=== PATIENT | female | born 1935 | race Caucasian/White ===

== ENCOUNTER → 2020-04-26 | Outpatient (CLI) | payer MEDICARE ==
[~2020-04-26] VITALS: Ht 160 cm; Wt 63.5 kg
[~2020-04-26] MED LIST: ASPIR-LOW81 MG PO; BENICAR20 MG PO; CITRACAL + D M1 EACH PO; CRESTOR5 MG PO; CYANOCOBAL1000 MCG/1 INJ; KLOR-CON 1010 MEQ PO; LASIX20 MG PO; LOPRESSOR 50 MG50 MG PO; MAGNESIUM200 MG PO; NEXIUM40 MG PO; NORVASC5 MG PO; SYNTHROID100 MCG PO; VALIUM2 MG PO; VITAMIN B-121000 MC3 PO; VITAMIN C500 M4 PO
== END ==
LOC: OPSV 04-12 11:00
DX: M81.0 Age-related osteoporosis without current pathological fracture (principal); M84.48XA Pathological fracture, other site, initial encounter for fracture
CPT/HCPCS: 96365; J3489

== ENCOUNTER 2021-01-30 11:42 | Emergency (ER) | payer MEDICARE ==
[2021-01-30 12:26] LABS: HEMOGLOBIN 13.8 gm/dl (12.3-15.3); RED BLOOD COUNT 4.6 M/UL (4.00-5.10); WHITE BLOOD COUNT 7.2 K/UL (4.5-11.0)
[2021-01-30 12:57] LABS: BUN/CREATININE RATIO 15 (0-10)
[2021-01-30] MEDS ORDERED: CYCLOBENZAPRINE5 MG PO (15:54)
== END 2021-01-30 16:14 | disposition home or self-care (01) ==
LOC: ER1 11:42
PROVIDERS: Emergency Medicine
DX: S46.912A Strain of unspecified muscle, fascia and tendon at shoulder and upper arm level, left arm, initial encounter (principal); M54.6 Pain in thoracic spine; I48.20 Chronic atrial fibrillation, unspecified; R91.1 Solitary pulmonary nodule; I10 Essential (primary) hypertension; I25.10 Atherosclerotic heart disease of native coronary artery without angina pectoris; Z79.01 Long term (current) use of anticoagulants; Z88.0 Allergy status to penicillin; Z95.5 Presence of coronary angioplasty implant and graft; X58.XXXA Exposure to other specified factors, initial encounter
CPT/HCPCS: 71045; 72128; 73030; 80053; 81001; 82550; 82553; 83690; 83874; 84484; 85025; 85610; 93005; 99284

== ENCOUNTER → 2021-05-22 | Outpatient (CLI) | payer MEDICARE ==
[~2021-05-22] MED LIST changes: +CYCLOBENZAPRINE5 MG PO
== END ==
LOC: KOH-I 13:39
DX: M25.571 Pain in right ankle and joints of right foot (principal)
CPT/HCPCS: 73610

== ENCOUNTER → 2021-10-13 | Outpatient (CLI) | payer MEDICARE | LOC: CT 08:57 | DX: R10.84 Generalized abdominal pain (principal); R74.8 Abnormal levels of other serum enzymes | CPT/HCPCS: 36415; 82565; 84520; Q9967 ==

== ENCOUNTER 2021-11-29 09:01 | Emergency (ER) | payer MEDICARE ==
[2021-11-29 10:17] LABS: HEMOGLOBIN 14.5 gm/dl (12.3-15.3); RED BLOOD COUNT 4.73 M/UL (4.00-5.10); WHITE BLOOD COUNT 6.4 K/UL (4.5-11.0)
[2021-11-29 10:47] LABS: BUN/CREATININE RATIO 13 (0-10)
[2021-11-29] MEDS ORDERED: TORADOL 10 MG T10 MG PO (14:40)
== END 2021-11-29 15:37 | disposition home or self-care (01) ==
LOC: ER1 09:01
PROVIDERS: Nurse Practitioner
DX: M54.9 Dorsalgia, unspecified (principal); M25.512 Pain in left shoulder; L53.9 Erythematous condition, unspecified; R06.02 Shortness of breath; R11.0 Nausea; I11.9 Hypertensive heart disease without heart failure; Z88.0 Allergy status to penicillin; Z95.1 Presence of aortocoronary bypass graft
CPT/HCPCS: 71045; 80053; 81001; 82550; 82553; 84484; 85025; 85379; 93005; 96374; 99284; J1885; Q9967